=== PATIENT | female | born 1970 | race Caucasian/White ===

== ENCOUNTER 2017-04-26 16:54 | Emergency (ER) | payer SELFPAY ==
[~2017-04-26] VITALS: Ht 162.6 cm; Wt 95.3 kg
[~2017-04-26 16:54] MED LIST: PREDNISONE 20MG20 MG PO
[2017-04-26] MEDS ORDERED: BACTRIM DS 8001 TA1 PO (17:38)
[2017-04-26] MEDS ORDERED: ETODOLAC200 MG PO (17:39)
--- NOTE | 2017-04-26 17:40 | Emergency Room Report ---
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 REPORTS SHE WAS GOING INTO WORK AND FELT LIQUID IN HER PANTIES. 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 N Clinical Suspician of Infection? N Mental Status: 1 - Regular (Normal Baseline) Sepsis Risk:Low Sepsis Risk Have you (or family members/close friends) recently traveled outside the [place]? N If Yes, where/when: Have you had exposure to infectious disease within the past month? N TB? Other? Specify: Source patient, RN notes reviewed, RN/MD Exam Limitations no limitations Comment This is a 46-year-old feel patient with history of LEFT breast cancer, currently in remission, status post chemotherapy and radiation, presenting to the emergency room with a lump in the area between the vagina and rectum, which just started draining pus prior to arrival. She has noticed this lump about 3 days ago, gradually getting larger and more sore. ALLERGIES Coded Allergies: sumatriptan (From IMITREX) (Intermediate, "HEAVY CHEST AND ARMS" 03/20/17) phenobarbital (Mild, LETHARGY 03/20/17) History Medical History General CAD? No Angina: No [place]: No Hypertension? No Hyperlipidemia? No CHF? No DVT? No PE? No COPD? No Asthma? No Anemia? No GERD? No Gastric ulcers? No GI Bleed? No Hernia? No Thyroid Problems? No Hypothyroidism? No CVA? No Seizures? Yes Diabetes? No Renal Insuffiency? No End Stage Renal Disease? No UTI? No Stones? No BPH? No GB Disease: No Nephritic Syndrome? No Asplenia? No Hepatitis? No Sickle Cell Disease? No Arthritis? No Migraines? No Cataracts? No Glaucoma? No MRSA? No HIV? No TB? No Anxiety? No Depression? No Cancer? Yes Site: BREAST/LYMPHNODES/CERVIS More? 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 Physical Exam Vital Signs Vital Signs Date Time Temp Pulse Resp B/P Pulse O2 O2 Flow FiO2 Ox Delivery Rate 04/26 1840 98.5 65 16 120/60 98 04/26 1659 98.5 90 16 122/69 98 General Appearance normal appearance, WD/WN, mild distress Eye Exam - bilateral eye normal exam, bilateral eye PERRL, bilateral eye EOMI Ear, Nose, Throat hearing grossly normal, normal ENT inspection Respiratory Status Yes: trachea midline, chest symmetrical, non tender chest. No: respiratory distress. Lung Sounds bilateral: normal breath sounds, lungs clear. Cardiovascular normal exam, regular rate/rhythm, no peripheral edema, no gallop, no JVD, no murmur, no rub, normal peripheral pulses Gastrointestinal normal bowel sounds, normal exam, non tender, soft, no organomegaly Extremities non-tender, normal range of motion, normal inspection Pelvic normal external exam, mass (posterior vaginal wall) Nurse present during exam? 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 No Comment The lesion palpable on the posterior vaginal wall, close to the introitus, is a a ruptured abscess. Advised patient that she will need to start antibiotics RIGHT away and follow-up with Dr. Garcia within the next 24 hours. Results/Orders Laboratory Tests 04/26/17 1745: WBC 10.6, RBC 4.60, Hgb 13.8, Hct 40.9, MCV 88.8, RDW 12.7, Plt Count 239, MPV 7.5, Gran % 74.6, Gran # 7.9 H, Lymphocytes % 20.0, Monocytes % 3.7, Eosinophils % 1.5, Basophils % 0.2, Lymphocytes # 2.1, Monocytes # 0.4, Eosinophils # 0.2, Basophils # 0.0, PUBS MCHC 33.7, MCH 30.0 Orders Procedure Date/time Status CBC WITH AUTO DIFF 04/26 1734 Complete Departure Departure Time of Disposition 1734 Disposition DC Home or Self Care(routine) Clinical Impression Primary Impression: Labial abscess Condition STABLE Referrals Jose FRENCH,Jose David Bruner MD,Kade Duncan (Family) Fly FRENCH,Kulwinder Canales Patient Instructions Vulvar Abscess Additional Instructions Please take the medications prescribed as instructed, follow-up with one of the gynecologists listed above, as well as Dr. Bruner regarding your bruising, at your earliest convenience. Discharge Counseling Counseled pt/family regarding diagnosis, test results, medications/RX, home care, follow up needs Comment Please take the medications prescribed as instructed, follow-up with one of the gynecologists listed above, as well as Dr. Bruner regarding your bruising, at your earliest convenience. Prescriptions Current Visit Scripts SULFAMETHOXAZOLE W/TRIMETHOPRI (Bactrim Ds Tab) 1 TABLET PO BID #20 TAB Etodolac 200 MG PO QIDP PRN pain #20 CAP ED Critical Care Critical Care No at 2004
--- NOTE | 2017-04-26 17:40 | Emergency Room Report ---
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 REPORTS SHE WAS GOING INTO WORK AND FELT LIQUID IN HER PANTIES. 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 N Clinical Suspician of Infection? N Mental Status: 1 - Regular (Normal Baseline) Sepsis Risk:Low Sepsis Risk Have you (or family members/close friends) recently traveled outside the [place]? N If Yes, where/when: Have you had exposure to infectious disease within the past month? N TB? Other? Specify: Source patient, RN notes reviewed, RN/MD Exam Limitations no limitations Comment This is a 46-year-old feel patient with history of LEFT breast cancer, currently in remission, status post chemotherapy and radiation, presenting to the emergency room with a lump in the area between the vagina and rectum, which just started draining pus prior to arrival. She has noticed this lump about 3 days ago, gradually getting larger and more sore. ALLERGIES Coded Allergies: sumatriptan (From IMITREX) (Intermediate, "HEAVY CHEST AND ARMS" 03/20/17) phenobarbital (Mild, LETHARGY 03/20/17) History Medical History General CAD? No Angina: No [place]: No Hypertension? No Hyperlipidemia? No CHF? No DVT? No PE? No COPD? No Asthma? No Anemia? No GERD? No Gastric ulcers? No GI Bleed? No Hernia? No Thyroid Problems? No Hypothyroidism? No CVA? No Seizures? Yes Diabetes? No Renal Insuffiency? No End Stage Renal Disease? No UTI? No Stones? No BPH? No GB Disease: No Nephritic Syndrome? No Asplenia? No Hepatitis? No Sickle Cell Disease? No Arthritis? No Migraines? No Cataracts? No Glaucoma? No MRSA? No HIV? No TB? No Anxiety? No Depression? No Cancer? Yes Site: BREAST/LYMPHNODES/CERVIS More? 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 Physical Exam Vital Signs Vital Signs Date Time Temp Pulse Resp B/P Pulse O2 O2 Flow FiO2 Ox Delivery Rate 04/26 1840 98.5 65 16 120/60 98 04/26 1659 98.5 90 16 122/69 98 General Appearance normal appearance, WD/WN, mild distress Eye Exam - bilateral eye normal exam, bilateral eye PERRL, bilateral eye EOMI Ear, Nose, Throat hearing grossly normal, normal ENT inspection Respiratory Status Yes: trachea midline, chest symmetrical, non tender chest. No: respiratory distress. Lung Sounds bilateral: normal breath sounds, lungs clear. Cardiovascular normal exam, regular rate/rhythm, no peripheral edema, no gallop, no JVD, no murmur, no rub, normal peripheral pulses Gastrointestinal normal bowel sounds, normal exam, non tender, soft, no organomegaly Extremities non-tender, normal range of motion, normal inspection Pelvic normal external exam, mass (posterior vaginal wall) Nurse present during exam? Yes Neurologic alert, him specialists II-XII nml as tested, normal exam, oriented x 3 Mental status normal mood/affect Skin intact, normal color, warm/dry Medical Decision Making LABS/Meds/Orders Pt receiving controlled substance in ED? No Comment The lesion palpable on the posterior vaginal wall, close to the introitus, is a a ruptured abscess. Advised patient that she will need to start antibiotics RIGHT away and follow-up with Dr. Garcia within the next 24 hours. Results/Orders Laboratory Tests 04/26/17 1745: WBC 10.6, RBC 4.60, Hgb 13.8, Hct 40.9, MCV 88.8, RDW 12.7, Plt Count 239, MPV 7.5, Gran % 74.6, Gran # 7.9 H, Lymphocytes % 20.0, Monocytes % 3.7, Eosinophils % 1.5, Basophils % 0.2, Lymphocytes # 2.1, Monocytes # 0.4, Eosinophils # 0.2, Basophils # 0.0, PUBS MCHC 33.7, MCH 30.0 Orders Procedure Date/time Status CBC WITH AUTO DIFF 04/26 1734 Complete Departure Departure Time of Disposition 1734 Disposition DC Home or Self Care(routine) Clinical Impression Primary Impression: Labial abscess Condition STABLE Referrals Jose FRENCH,Jose David Bruner MD,Kade Duncan (Family) Fly FRENCH,Kulwinder Canales Patient Instructions Vulvar Abscess Additional Instructions Please take the medications prescribed as instructed, follow-up with one of the gynecologists listed above, as well as Dr. Bruner regarding your bruising, at your earliest convenience. Discharge Counseling Counseled pt/family regarding diagnosis, test results, medications/RX, home care, follow up needs Comment Please take the medications prescribed as instructed, follow-up with one of the gynecologists listed above, as well as Dr. Bruner regarding your bruising, at your earliest convenience. Prescriptions Current Visit Scripts SULFAMETHOXAZOLE W/TRIMETHOPRI (Bactrim Ds Tab) 1 TABLET PO BID #20 TAB Etodolac 200 MG PO QIDP PRN pain #20 CAP ED Critical Care Critical Care No at 2004
[2017-04-26 17:54] LABS: HEMOGLOBIN 13.8 g/dL (12.2-16.2); LYMPH # 2.1 K/mm3 (0.7-4.5)
--- OUTSIDE RECORDS SUMMARY | 2017-04-26 17:54 | External Medical Summary Rpt ---
Author Author , DOREEN LOGAN Address Unknown Phone [email or web address] Immunization Name Date Rout CVX Reac Dose Comm Prov Is Faci e tion ent ider Refu lity Give sed n Infl 09- 141 1 mL Hist 1002 No 1002 uenz 8-20 oric 20 20 a, 13 al Seas Info onal rmat ion - Sour ce Unsp ecif ied PPV2 09-1 33 1 mL Hist 1002 No 1002 3 8-20 oric 20 20 13 al Info rmat ion - Sour ce Unsp ecif ied
--- OUTSIDE RECORDS SUMMARY | 2017-04-26 17:54 | External Medical Summary Rpt ---
Author Author , DOREEN LOGAN Address Unknown Phone [email or web address] Care Team Providers Care Cartoon Designer Name Role Phone [facility], Unavailable Unavailable [facility] MARYLU LIS, MARYLU LIS Unavailable Unavailable [facility] Unavailable Unavailable ANESTHES, [facility] ANESTHES BOOTH DHA, [facility] D[facility] Unavailable Unavailable [facility], [facility] Unavailable Unavailable Medicine Purpose Continuity of Care Document - 04-03-2015 through 2016 Problems Code Diagnosis DOS Provider Status [id number] CELLULITIS 02-20-2016 [facility] [place] [id number] MALIG 06-18-2015 [facility] NEOPLASM Medicine CENTRAL PORTION UNS FEMALE BREAST Z170 ESTROGEN 06-18-2015 [facility] RECEPTOR Medicine POSITIVE STATUS [id number] OTHER ACUTE 04-03-2015 [facility] POSTOPERATI ANESTHES VE PAIN 6268 OTH D/O 04-03-2015 [facility] M[facility]ATIO [place] [facility] N&OTH ABN ANESTHES BLEED FE GNT TRACT V103 PERSONAL 04-03-2015 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
--- OUTSIDE RECORDS SUMMARY | 2017-04-26 17:54 | External Medical Summary Rpt ---
Author Author , DOREEN LOGAN Address Unknown Phone [email or web address] Care Team Providers Care Custom Ski Maker Name Role Phone [facility], Unavailable Unavailable [facility] MARYLU LIS, MARYLU LIS Unavailable Unavailable [facility] Unavailable Unavailable ANESTHES, [facility] ANESTHES BOOTH ELINOR, BOOTH DHA Unavailable Unavailable [facility] Medicine, [facility] Unavailable Unavailable Medicine Purpose Continuity of Care Document - 04-03-2015 through 2016 Problems Code Diagnosis DOS Provider Status [id number] CELLULITIS 02-20-2016 [facility] [place] [id number] MALIG 06-18-2015 [facility] NEOPLASM Medicine CENTRAL PORTION UNS FEMALE BREAST Z170 ESTROGEN 06-18-2015 [facility] RECEPTOR Medicine POSITIVE STATUS [id number] OTHER ACUTE 04-03-2015 [facility] POSTOPERATI ANESTHES VE PAIN 6268 OTH D/O 04-03-2015 GREATER MENSTRUATIO [place] N&OTH ABN ANESTHES BLEED FE GNT TRACT V103 PERSONAL 04-03-2015 [facility] HISTORY OF [place] MALIGNANT ANESTHES NEOPLASM OF BREAST Procedures Procedure DOS Code Location Performer Comment ANESTHESI 68712 GREATER MARYLU LIS A 5 [place] INTRAPERI E TONEAL ANESTHES [place]OWER [place]X 06024 GREATER MARYLU LIS DX/THER 5 [place] SBST E EPIDURAL/ ANESTHES SUBARACH LUMBAR/SA CRAL Encounters Encounter Start End Date Code Location Performer Type Date EMERGENCY [address] [place] [address] [facility]OSPITAL DEPARTMEN T [facility] [place] [address] HOSPITAL OUTPATIEN T OFFICE [address] [facility] [place] OUTPATIEN 5 5 Medicine T VISIT 25 MINUTES
--- OUTSIDE RECORDS SUMMARY | 2017-04-26 17:54 | External Medical Summary Rpt ---
Author Author , DOREEN LOGAN Address Unknown Phone [email or web address] [facility] Care Team Providers Care Box Sealing Inspector Name Role Phone [facility], Unavailable Unavailable [facility] MARYLU LIS, MARYLU LIS Unavailable Unavailable [facility] Unavailable Unavailable ANESTHES, [facility] ANESTHES BOOTH DHA, BOOTH DHA Unavailable Unavailable [facility], [facility] Unavailable Unavailable Medicine Purpose Continuity of Care Document - 04-03-2015 through 2016 Problems Code Diagnosis DOS Provider Status [id number] CELLULITIS 02-20-2016 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
--- OUTSIDE RECORDS SUMMARY | 2017-04-26 17:54 | External Medical Summary Rpt ---
Author Author , DOREEN LOGAN Address Unknown Phone [email or web address] Care Team Providers Care Technician Biological Health Name Role Phone [facility], Unavailable Unavailable [facility] MARYLU LIS, MARYLU LIS Unavailable Unavailable [facility] Unavailable Unavailable ANESTHES, [facility] ANESTHES BOOTH ELINOR, BOOTH DHA Unavailable Unavailable [facility] Medicine, [facility] Unavailable Unavailable Medicine Purpose Continuity of Care Document - 04-03-2015 through 2016 Problems Code Diagnosis DOS Provider Status [id number] CELLULITIS 02-20-2016 [facility] [place] [id number] MALIG 06-18-2015 [facility] NEOPLASM Medicine CENTRAL PORTION UNS FEMALE BREAST Z170 ESTROGEN 06-18-2015 [facility] RECEPTOR Medicine POSITIVE STATUS 11098 OTHER ACUTE 04-03-2015 [facility] POSTOPERATI ANESTHES VE PAIN 6268 OTH D/O 04-03-2015 GREATER MENSTRUATIO [place] N&OTH ABN ANESTHES BLEED FE GNT TRACT V103 PERSONAL 04-03-2015 [facility] HISTORY OF [place] MALIGNANT ANESTHES NEOPLASM OF BREAST Procedures Procedure DOS Code Location Performer Comment ANESTHESI 26126 GREATER MARYLU LIS A 5 [place] INTRAPERI E TONEAL ANESTHES LOWER ABD W/[place]APS [place] NJX 08514 GREATER MARYLU LIS DX/THER 5 [place] SBST E EPIDURAL/ ANESTHES SUBARACH LUMBAR/SA CRAL Encounters Encounter Start End Date Code Location Performer Type Date EMERGENCY [address] [place] [address] HOSPITAL DEPARTMEN T [facility] [place] [address] HOSPITAL OUTPATIEN T OFFICE [address] [facility] [place] OUTPATIEN 5 5 Medicine T VISIT 25 MINUTES
--- OUTSIDE RECORDS SUMMARY | 2017-04-26 17:54 | External Medical Summary Rpt ---
Author Author DOEREN Islas, DOREEN [employer] Organization [employer] Address Unknown Phone Unavailable
--- OUTSIDE RECORDS SUMMARY | 2017-04-26 17:54 | External Medical Summary Rpt ---
Author Author DOREEN Islas, [employer] Organization [employer] Address Unknown Phone Unavailable
--- OUTSIDE RECORDS SUMMARY | 2017-04-26 17:54 | External Medical Summary Rpt ---
Author Author , DOREEN LOGAN Address Unknown Phone [email or web address] Immunization Name Date Rout CVX Reac Dose [...]
[2017-04-26 18:40] VITALS: BP 120/60
== END 2017-04-26 18:40 | disposition home or self-care (01) ==
LOC: ER 16:54
PROVIDERS: Emergency Medicine
DX: N76.4 Abscess of vulva (principal); Z72.0 Tobacco use